=== PATIENT | female | born 1990 | race Hispanic/Latino ===

== ENCOUNTER 2021-03-18 00:53 | Emergency (ER) | payer MEDICAID ==
[2021-03-18 01:28] LABS: #Eosinphils 0.1 thou/uL (0.0-0.7); #Lymphocytes 2.1 thou/uL (1.20-3.40); #Monocytes 0.4 thou/uL (0.11-0.59); #Neutrophils 4.8 thou/uL (1.40-6.50); %Basophils 0.3 % (0.0-1.0); %Eosinophils 0.7 % (0.0-10.0); %Lymphocytes 28.4 % (21.0-51.0); %Monocytes 5.4 % (0.0-10.0); %Neutrophils 65.2 % (42.0-75.0); Hemoglobin 11.1 g/dL (12.0-16.0); Mean Corpuscular HGB CONC 34.5 g/dL (32.0-36.0); Mean Corpuscular Hemoglobin 31.9 pg (27.0-31.0); Mean Corpuscular Volume 92.6 fL (78.0-98.0); Platelet Count 199 thou/uL (130-400); RBC Distribution Width 12.2 % (11.5-14.5); Red Blood Cell (RBC) Count 3.49 mill/uL (4.20-5.40); White Blood Cell (WBC) Count 7.3 thou/uL (4.8-10.8)
[2021-03-18 01:58] LABS: ALT (SGPT) 40 U/L (8-55); AST (SGOT) 38 U/L (5-34); Albumin 3.4 g/dL (3.5-5.0); Alkaline Phosphatase 80 U/L (40-110); Anion Gap 15 mmol/L (10-20); BUN (Urea Nitrogen) 8 mg/dL (7.0-18.7); Bilirubin, Total 0.3 mg/dL (0.2-1.2); Calc. Creatinine Clearance 0 mL/min (70-130); Calcium 8.6 mg/dL (7.8-10.44); Carbon Dioxide 16 mmol/L (22-29); Chloride 106 mmol/L (98-107); Globulin 2.9 g/dL (2.4-3.5); Glucose 114 mg/dL (70-105); Potassium 3.5 mmol/L (3.5-5.1); Protein, Total 6.3 g/dL (6.0-8.3); Sodium 133 mmol/L (136-145)
[2021-03-18] MEDS ORDERED: Fentanyl 100 MCG/2 ML VIAL ONE (02:48)
[2021-03-18 04:06] LABS: SARS-CoV-2 NAA Rapid Test Not Detected (NotDetected)
[2021-03-18] MEDS ORDERED: Succinylcholine 200 MG/10 ml SYRINGE FS ONE (14:48)
[2021-03-18] MEDS ORDERED: Lidocaine 1% PF 5 ML VIAL ONE (14:48)
[2021-03-18] MEDS ORDERED: Ondansetron PF 4 MG/2 ML Vial ONE (14:48)
== END 2021-03-18 05:16 | disposition short-term general hospital (02) ==
LOC: ERS 00:53
DX: O9A.213 Injury, poisoning and certain other consequences of external causes complicating pregnancy, third trimester (principal); S82.301A Unspecified fracture of lower end of right tibia, initial encounter for closed fracture; S82.831A Other fracture of upper and lower end of right fibula, initial encounter for closed fracture; Z20.822 Contact with and (suspected) exposure to COVID-19; Z3A.31 31 weeks gestation of pregnancy; W17.89XA Other fall from one level to another, initial encounter
CPT/HCPCS: 0240U; 29515; 36415; 71045; 76815; 80053; 85025; 86900; 86901; 93005; 96374; J2405; J3010